=== PATIENT | male | born 1955 | race Hispanic/Latino ===

== ENCOUNTER 2022-08-10 08:30 | Observation (INO) | payer MEDICARE ==
[~2022-08-10] VITALS: Ht 172.7 cm; Wt 79.3 kg
[2022-08-24 10:14] LABS: BASOPHILS % (AUTO) 0.5 % (0.0-5.0); EOSINOPHILS % (AUTO) 1.5 % (0.0-8.0); HEMATOCRIT 44.3 % (42-54); LYMPHOCYTES % (AUTO) 31.3 % (21.0-51.0); MEAN CORPUSCULAR HEMOGLOBIN 30.6 pg (27.0-33.0); MEAN CORPUSCULAR HGB CONC 32.7 g/dL (32.0-36.0); MEAN CORPUSCULAR VOLUME 93.5 fL (79-99); MONOCYTES % (AUTO) 8.3 % (3.0-13.0); NEUTROPHILS % (AUTO) 57.9 % (40.0-77.0); PLATELET COUNT (AUTO) 209 K/uL (130-400); RED BLOOD CELL COUNT(AUTO) 4.74 MIL/uL (4.50-6.20); RED CELL DISTRIBUTION WIDTH 12.7 % (11.0-15.5); WHITE BLOOD COUNT (AUTO) 6.2 K/uL (4.8-10.8)
[2022-08-24 10:23] LABS: POTASSIUM 5.4 mmol/L (3.5-5.1)
[2022-08-24 11:02] VITALS: BP 127/73
[2022-08-24] MEDS ORDERED: PREG100C55 PO (11:13)
[2022-08-24] MEDS ORDERED: SIMV-43 PO (11:13)
[2022-08-24] MEDS ORDERED: ASPI-1197 PO (11:13)
[2022-08-24] MEDS ORDERED: LEVO50CA4 PO (11:13)
[2022-08-24] MEDS ORDERED: AREDS 2 FORMULA PO (11:13)
[2022-08-24] MEDS ORDERED: OZEMPIC SQ (11:13)
[2022-08-24] MEDS ORDERED: INSU300I SQ (11:13)
[2022-08-24] MEDS ORDERED: METF-444 PO (11:13)
[2022-08-24] MEDS ORDERED: LINA5TAB PO (11:13)
[2022-08-24] MEDS ORDERED: BUPR150T3 PO (11:13)
[2022-08-26] VITALS (26 sets, daily range): BP systolic 90–145; BP diastolic 48–82
[2022-08-26] MEDS: CEFAZOLIN SODIUM 2 GM VIAL IVPB SCH ×2 (06:00→07:30)
[2022-08-26] MEDS: BUPIVACAINE/EPI/PF 0.25% 30ML VIAL IJ SCH ×2 (06:30→07:00)
[2022-08-26] MEDS ORDERED: 0.9%NACL 1000ML 1,000 ML IV ONE (06:35)
[2022-08-26] MEDS ORDERED: SUCCINYLCHOLINE CHLORIDE 20 MG/ML 10 ML VIAL ONE (06:49)
[2022-08-26] MEDS ORDERED: MIDAZOLAM HCL 1 MG/ML 2ML VIAL ONE (06:49)
[2022-08-26] MEDS ORDERED: GLYCOPYRROLATE 1 MG/5 ML SYRINGE ONE (06:49)
[2022-08-26] MEDS ORDERED: PROPOFOL 10 MG/ML 20ML VIAL IV ONE (06:49)
[2022-08-26] MEDS ORDERED: LIDOCAINE PF 100MG/5ML (2%) SYRINGE 5ML ONE (06:49)
[2022-08-26] MEDS ORDERED: DEXAMETHASONE SOD PHOSPHATE 10MG/ML 1ML VIAL ONE ×2 (06:49→06:59)
[2022-08-26] MEDS ORDERED: ONDANSETRON 4MG INJ ONE ×2 (06:50→06:59)
[2022-08-26] MEDS ORDERED: ROCURONIUM 10MG/1ML SYR 10 MG/ML ML ONE ×2 (06:50→08:18)
[2022-08-26] MEDS ORDERED: NEOSTIGMINE 5MG/5ML SYR IV ONE (06:50)
[2022-08-26] MEDS ORDERED: FENTANYL CITRATE PF 50 MCG/1 ML 2ML VIAL ONE (06:51)
[2022-08-26] MEDS ORDERED: PHENYLEPHRINE HCL 10 MG/ML 1ML VIAL IV ONE (06:55)
[2022-08-26] MEDS ORDERED: CEFAZOLIN SODIUM 1 GM VIAL ONE (07:14)
[2022-08-26] MEDS ORDERED: THROMBIN-JMI 20000 UNIT KIT TP ONE (07:15)
[2022-08-26] MEDS ORDERED: OXYMETAZOLINE HCL SPRAY 15 ML BOTTLE ONE (07:20)
[2022-08-26] MEDS ORDERED: FENTANYL CITRATE PF 50 MCG/1 ML 5ML AMP IV ONE (08:18)
[2022-08-26] MEDS ORDERED: LIDOCAINE HCL-MPF 1% 5ML AMP IJ ONE (08:23)
[2022-08-26] MEDS ORDERED: PROPOFOL 1000 MG/100 ML 100 ML IV ONE (08:53)
[2022-08-26] MEDS ORDERED: NALOXONE HCL 0.4 MG/1 ML ML ONE (10:40)
[2022-08-26] MEDS ORDERED: ARTIFICIAL TEARS 3.5 GM OINTMENT ONE (10:51)
[2022-08-26] MEDS ORDERED: HYDROCODONE/ACETAMINOPHEN 5/325 MG TAB PO PRN (11:00)
[2022-08-26] MEDS ORDERED: PROMETHAZINE HCL 25 MG/ML 1ML AMPULE IM PRN (11:00)
[2022-08-26] MEDS ORDERED: DEXAMETHASONE SOD PHOSPHATE 4 MG/ML 1ML VIAL IVP SCH (11:00)
[2022-08-26] MEDS ORDERED: 0.9%NACL 10ML VIAL IVP PRN (11:00)
[2022-08-26] MEDS ORDERED: MORPHINE 2 MG SYG IVP PRN (11:00)
[2022-08-26] MEDS ORDERED: CEFAZOLIN SODIUM 2 GM VIAL IVPB SCH ×2 (11:00→15:30)
[2022-08-26] MEDS: LACTATED RINGERS 1000ML 1,000 ML IV SCH ×2 (12:10→20:47)
[2022-08-26] MEDS: DEXAMETHASONE SOD PHOSPHATE 4 MG/ML 1ML VIAL IVP SCH ×2 (15:46→20:30)
[2022-08-26] MEDS: METFORMIN HCL 500 MG TABLET PO SCH (16:54)
[2022-08-26] MEDS: PREGABALIN 100 MG CAPSULE PO SCH (20:40)
[2022-08-26] MEDS ORDERED: INSULIN GLARGINE 100 UNITS/ML 10 ML VIAL SQ SCH (21:00)
[2022-08-26] MEDS ORDERED: AREDS FORMULA PO SCH (21:00)
[2022-08-26] MEDS ORDERED: ASPIRIN 81MG CHEW TAB PO SCH (21:00)
[2022-08-26] MEDS ORDERED: SIMVASTATIN 20 MG TABLET PO SCH (21:00)
[2022-08-27] VITALS: BP 137/71
[2022-08-27] MEDS: DEXAMETHASONE SOD PHOSPHATE 4 MG/ML 1ML VIAL IVP SCH ×2 (01:17→08:58)
[2022-08-27] MEDS: BUPIVACAINE/EPI/PF 0.25% 30ML VIAL IJ SCH (01:18)
[2022-08-27 04:00] VITALS: BP 125/68
[2022-08-27 07:30] VITALS: BP 132/73
[2022-08-27] MEDS ORDERED: LEVOTHYROXINE 50 MCG TABLET PO SCH (07:30)
[2022-08-27] MEDS: PREGABALIN 100 MG CAPSULE PO SCH (08:58)
[2022-08-27] MEDS: METFORMIN HCL 500 MG TABLET PO SCH (08:58)
[2022-08-27] MEDS ORDERED: LINAGLIPTIN 5 MG TABLET PO SCH (09:00)
[2022-08-27] MEDS ORDERED: BUPROPION HCL 150 MG TABLET.SA PO SCH (09:00)
[2022-08-27 11:00] VITALS: BP 120/63
[2022-09-02] MEDS ORDERED: OZEMPIC 2 MG SQ SCH (09:00)
== END 2022-08-27 12:15 | disposition home or self-care (01) ==
LOC: EDSTATUS 11:30 → DAHIP 08-26 05:52 → 4BH 08-26 11:58
PROVIDERS: ADMIT Neurological Surgery; ATTEND Neurological Surgery
DX: G56.01 Carpal tunnel syndrome, right upper limb (principal); Z20.822 Contact with and (suspected) exposure to COVID-19; M47.22 Other spondylosis with radiculopathy, cervical region; E11.9 Type 2 diabetes mellitus without complications; I10 Essential (primary) hypertension; E78.5 Hyperlipidemia, unspecified; M25.78 Osteophyte, vertebrae; E03.9 Hypothyroidism, unspecified; Z98.1 Arthrodesis status; Z85.038 Personal history of other malignant neoplasm of large intestine; Z79.899 Other long term (current) drug therapy
CPT/HCPCS: 80048 ×2; 85025; 87426; 36415 ×2; 71045; 64721; 22551; 22845; 20930; 96365; 96366; 96375; 82948 ×5; 72020; 96376; A6260; G0378 ×25; A4663; J7030 ×2; A4344; A4649 ×4; J3010 ×2; J0690 ×3; J2310; J3490 ×2; J1100 ×6; J2710; J0330; J2001; J2250; J2704 ×2; J2405 ×2; J2370; C1713; A4215; A4223; A4222; A4221; A4600; A4510